=== PATIENT | male | born 1980 | race Caucasian/White ===

== ENCOUNTER → 2020-11-27 02:46 | Outpatient (CLI) | payer OTHER, SELFPAY ==
[2020-11-27 18:08] LABS: SARS-CoV-2 RNA PCR Negative
== END ==
PROVIDERS: PCP Family Medicine Sports Medicine; Visit Provider Internal Medicine Gastroenterology
DX: Z01.812 Encounter for preprocedural laboratory examination (principal); Z20.822 Contact with and (suspected) exposure to COVID-19
CPT/HCPCS: C9803; U0003; U0005

== ENCOUNTER 2020-11-30 01:11 | Day surgery (SDC) | payer OTHER, SELFPAY ==
[2020-11-21 08:45] VITALS: BMI 38.9
[2020-11-30 06:48] VITALS: BP 151/97; PULSE 88; RESP 20; TEMP 36.1; O2SAT 98; BMI 40.4
[2020-11-30] MEDS: LACTATED RINGERS 1,000 ML 150 ML IV CONT (07:02)
--- NOTE | 2020-11-30 07:17 | PM.HPGS ---
History of Present Illness History of Present Illness Consent: Risks, benefits, and alternatives have been discussed and questions answered. Patient agrees to proceed with procedure. Chief complaint: GERD,Family Hx Of Esophageal CA Narrative: Bonifacio Pyle is a 40 year old male With long history of acid reflux. His father had Vo's esophagus and developed cancer the esophagus in his early 40s Review of Systems Review of Systems: All systems reviewed & are unremarkable except as noted in HPI and below PMFSH Family History Family History (Updated 11/30/20 @ 07:25 by Rian Stack MD) Other Carcinoma of esophagus Social History Social History Smoking status: Never smoker Alcohol intake: current Drinks per week: 2 Alcohol use details: WINE Substance use: never Substance use type: does not use Living arrangements: alone Spiritual care concerns: No Meds Home Medications and Allergies Home Medications Medication Instructions Recorded Confirmed Type Lacto.acidophilus-Bif.animalis 1 cap PO DAILY 11/21/20 11/21/20 History [Daily Probiotic] multivitamin with minerals [Men's 1 tablet PO DAILY 11/21/20 11/21/20 History One Daily] omeprazole 40 mg PO DAILY 11/21/20 11/21/20 History Allergies Allergy/AdvReac Type Severity Reaction Status Date / Time No Known Allergies Allergy Mild Verified 11/30/20 06:47 Vital Signs Vital Signs - 24 hr 11/30/20 06:48 Temperature 36.1 C L Pulse Rate 88 Respiratory Rate 20 Blood Pressure 151/97 H Pulse Oximetry 98 Exam Const: General: alert Orientation/consciousness: patient oriented x3 Resp: Auscultation: clear to auscultation bilaterally Cardio: Rhythm: regular rhythm GI: GI Palp: Yes Soft to palpation and No Tenderness to palpation present (GI) Neuro: General: patient oriented x3 Assessment and Plan Assessment and plan (1) GERD (gastroesophageal reflux disease): Code(s): K21.9 - Gastro-esophageal reflux disease without esophagitis Status: Acute Assessment and Plan: EGD with possible biopsy or dilatation or cautery.
--- NOTE | 2020-11-30 07:50 | P.PNAN_ITS ---
Anes - Initial Pre Proc Eval Procedure: Operation Date: 11/30/20 08:00 Proposed Procedures p Esophagogastroduodenoscopy - Rian Stack MD Date/Time: 11/30/20 07:50 Surgeon: Rian Stack MD Pre Op Diagnosis: GERD,Family Hx Of Esophageal CA Patient Data Age: 40 Gender: M Height: 5 ft 8 in Weight: 120.4 kg Last Vital Signs Temp 97 F L 11/30/20 06:48 Pulse 88 11/30/20 06:48 Resp 20 11/30/20 06:48 BP 151/97 H 11/30/20 06:48 Pulse Ox 98 11/30/20 06:48 Allergies Allergy/AdvReac Type Severity Reaction Status Date / Time No Known Allergies Allergy Mild Verified 11/30/20 06:47 Home Medications Medication Instructions Recorded Confirmed Type Lacto.acidophilus-Bif.animalis 1 cap PO DAILY 11/21/20 11/21/20 History [Daily Probiotic] multivitamin with minerals [Men's 1 tablet PO DAILY 11/21/20 11/21/20 History One Daily] omeprazole 40 mg PO DAILY 11/21/20 11/21/20 History Patient hx anesthesia problems: none Family hx anesthesia problems: none [facility] Past Medical History Medical History (Updated 11/30/20 @ 07:46 by Sherman Toledo MD) Asthma GERD (gastroesophageal reflux disease) Family History Family History (Updated 11/30/20 @ 07:25 by Rian Stack MD) Other Carcinoma of esophagus Social History Social History Smoking status: Never smoker Alcohol intake: current Drinks per week: 2 Alcohol use details: WINE Substance use: never Substance use type: does not use Living arrangements: alone Spiritual care concerns: No Anes - Eval Final PreProcedure Day of Procedure 11/30/20 07:50 Patient weight: morbidly obese Heart: regular rate and rhythm Lungs: clear to auscultation Airway: Mallampati scale class II Neurological: alert and oriented Last oral intake: >/= 8 hours ASA classification: III Emergent: no Anesthetic plan: proceed Anesthesia type and monitoring: general GIVS and standard monitoring Informed Consent: The patient's anesthetic plan and its attendant risks and benefits were discussed with the patient/family/POA. Questions were solicited and answers provided to the satisfaction of the patient/family/POA.
[2020-11-30 08:18] VITALS: BP 115/64; PULSE 83; RESP 19; O2SAT 98
[2020-11-30 08:28] VITALS: BP 140/69; PULSE 81; RESP 22; O2SAT 98
[2020-11-30 08:38] VITALS: BP 132/68; PULSE 78; RESP 20; O2SAT 98
== END 2020-11-30 09:00 | disposition home or self-care (01) ==
PROVIDERS: PCP Family Medicine Sports Medicine; Visit Provider Internal Medicine Gastroenterology
PROC: 0DJ08ZZ Inspection of Upper Intestinal Tract, Via Natural or Artificial Opening Endoscopic (ICD-10-PCS; CPT 43235; principal; 2020-11-30 08:00)
DX: K21.9 Gastro-esophageal reflux disease without esophagitis (principal); K22.70 Barrett's esophagus without dysplasia; K31.7 Polyp of stomach and duodenum; E66.01 Morbid (severe) obesity due to excess calories; Z68.41 Body mass index [BMI] 40.0-44.9, adult
CPT/HCPCS: 43239; 88305; 88313; C9803; J2001; J2405; J2704; J7120; U0003; U0005

== ENCOUNTER 2022-02-20 11:04 | Emergency (ER) | payer OTHER, SELFPAY ==
--- NOTE | ~2022-02-20 | XR_ITS ---
EXAMINATION: [id number] DATE: 02/20/2022 12:07 INDICATION: Lateral chest wall pain. Fall. TECHNIQUE: A frontal view of the chest and 2 views on 4 radiographs of the left ribs were obtained. COMPARISON: None. FINDINGS: The chest demonstrates clear lungs without pneumonia, pleural effusion, or pneumothorax. Th e heart size is normal. IMPRESSION: 1. No rib fracture. Reviewed, dictated and finalized at location B. IMPRESSION: 1. No rib fracture.
[2022-02-20 11:09] VITALS: BP 161/80; PULSE 112; RESP 20; TEMP 36.8; O2SAT 97
--- NOTE | 2022-02-20 11:52 | ED.FALL ---
HPI - Fall General Chief Complaint: Fall Stated Complaint: L LATERAL RIB PAIN S/P FALL Time Seen by Provider: 02/20/22 11:46 History of Present Illness HPI Narrative: 42-year-old male presents emergency room secondary pain to the left lateral chest wall. On Thursday he was playing roller hockey when he fell landing directly on that side. He states he felt pretty good the rest of that day and Thursday. He states that when he did fall he did not hit his head and had no loss of consciousness. Denies any pain to the lower extremities his only pain seems to be to the left lateral chest wall. When he tries to sleep and roll over on that side it wakes him up. Is been taking ibuprofen for the pain. Over the last couple days the pain seems to be got little bit worse. He has no abdominal pain and no shortness of breath. Related Data Home Medications Medication Instructions Recorded Confirmed Lactobacillus 1 cap PO DAILY 11/21/20 11/21/20 acidophilus-Bifidobac.animalis 2.5 billion cell capsule (Daily Probiotic) multivitamin with minerals (Men's 1 tablet PO DAILY 11/21/20 11/21/20 One Daily tablet) omeprazole 40 mg capsule,delayed 80 mg 02/20/22 release Allergies Allergy/AdvReac Type Severity Reaction Status Date / Time No Known Allergies Allergy Mild Verified 02/20/22 11:40 Review of Systems Review of Systems: CONSTITUTIONAL: Denies fever, chills, or sweats. EYES: Denies visual changes, redness, or discharge. ENT: Denies rhinorrhea, congestion, sore throat, or otalgia. CARDIOVASCULAR: Denies palpitations, or edema. Pain to the left lateral chest wall RESPIRATORY: Denies cough or dyspnea. GASTROINTESTINAL: Denies abdominal pain, nausea, vomiting, or diarrhea. GENITOURINARY: Denies dysuria or hematuria. SKIN: Denies rash or itching. MUSCULOSKELETAL: Denies back pain, joint pain, or myalgia. NEUROLOGIC: Denies headache, numbness, or weakness. PSYCHIATRIC: Denies anxiety or depression. [facility] Past Medical History Medical History Asthma GERD (gastroesophageal reflux disease) Family History Family History Other Carcinoma of esophagus Social History Social History Smoking status: Never smoker Alcohol intake: current Drinks per week: 2 Alcohol use details: WINE Substance use: never Substance use type: does not use Spiritual care concerns: No Exam Narrative: APPEARANCE: Well appearing, no pain or distress, well-nourished. Head normocephalic and atraumatic. EYES: PERRLA/EOMI, conjunctivae very clear. NOSE: Normal with no drainage EARS:TMS clear Melani Ryan, with good light reflex. THROAT: Pharynx clear, no exudate. NECK: Supple. No adenopathy, no masses. RESPIRATORY: Airway patent, respirations nonlabored. Clear to auscultation bilaterally, no rales, rhonchi, wheezing. Tenderness to palpation in the left lateral chest wall from about the midportion of the chest all the way down to the lower portion. No crepitus or subcutaneous emphysema is noted. CARDIOVASCULAR: Regular rate and rhythm without murmurs, rubs, or gallops. ABDOMINAL: Soft, nontender, nondistended, no hepatosplenomegaly Musculoskeletal: Moves all extremities. Strength/ROM intact, No edema, No calf tenderness. NEURO: Alert. Cranial nerves II through XII intact. Normal gait. Good coordination. Nonfocal examination. SKIN:: Warm, dry. Normal Color PSYCHIATRIC: Normal affect/mood, normal interaction Course Vital Signs Vital signs: Vital Signs Temperature 98.2 F 02/20/22 11:09 Pulse Rate 112 H 02/20/22 11:09 Respiratory Rate 20 02/20/22 11:09 Blood Pressure 161/80 H 02/20/22 11:09 Pulse Oximetry 97 02/20/22 11:09 Oxygen Delivery Room Air 02/20/22 11:09 Temperature 98.2 F 02/20/22 11:09 Pulse Rate 112 H 02/20/22 11:09 Respiratory Rate 20
[2022-02-20] MEDS: ACETAMINOPHEN 500 MG TABLET 1000 MG PO (12:25)
[2022-02-20 13:00] VITALS: BP 164/88; PULSE 98; RESP 20; O2SAT 98
== END 2022-02-20 13:02 | disposition home or self-care (01) ==
PROVIDERS: Emergency Provider Emergency Medicine; PCP Family Medicine Sports Medicine
DX: S20.212A Contusion of left front wall of thorax, initial encounter (principal); J45.909 Unspecified asthma, uncomplicated; K21.9 Gastro-esophageal reflux disease without esophagitis; Y93.51 Activity, roller skating (inline) and skateboarding; V00.111A Fall from in-line roller-skates, initial encounter
CPT/HCPCS: 71101; 99283; A9270